=== PATIENT | female | born 1930 ===

== ENCOUNTER → 2017-06-08 | Outpatient (CLI) | payer OTHER, MEDICAID ==
[~2017-06-08] VITALS: Ht 144.8 cm; Wt 53.0 kg
[~2017-06-08] MED LIST: ABAT125S SQ; ACET-66 PO; AMLO-511 PO; ASPI-556 PO; ATEN25TA PO; CA C1TAB93 PO; DENO60DI SQ; FLUT1AER PO; PRED5 PO; RANI150T7 PO; RIFA300 PO; SIMV-261 PO; TIOT4MIS2 IH; TOFA5TAB PO; UMEC62.5 PO
[2017-06-08 11:53] VITALS: BP 124/51
== END | disposition home or self-care (01) ==
LOC: SRCNTR 11:47
PROVIDERS: ATTEND Internal Medicine Critical Care Medicine
DX: J84.111 Idiopathic interstitial pneumonia, not otherwise specified (principal); J44.1 Chronic obstructive pulmonary disease with (acute) exacerbation; I10 Essential (primary) hypertension; E78.2 Mixed hyperlipidemia; R76.12 Nonspecific reaction to cell mediated immunity measurement of gamma interferon antigen response without active tuberculosis
CPT/HCPCS: G0463

== ENCOUNTER → 2017-09-07 | Outpatient (CLI) | payer OTHER, MEDICAID ==
[~2017-09-07] VITALS: Ht 144.8 cm; Wt 53.0 kg
[~2017-09-07] MED LIST changes: -ABAT125S SQ; -FLUT1AER PO; -UMEC62.5 PO
[2017-09-07 11:46] VITALS: BP 154/65
== END | disposition home or self-care (01) ==
LOC: SRCNTR 11:41
PROVIDERS: ATTEND Internal Medicine Critical Care Medicine
DX: J84.111 Idiopathic interstitial pneumonia, not otherwise specified (principal); I10 Essential (primary) hypertension; E78.2 Mixed hyperlipidemia; R76.12 Nonspecific reaction to cell mediated immunity measurement of gamma interferon antigen response without active tuberculosis; J44.1 Chronic obstructive pulmonary disease with (acute) exacerbation
CPT/HCPCS: G0463